=== PATIENT | female | born 1950 | race Caucasian/White ===

== ENCOUNTER 2020-11-30 15:06 | Outpatient (CLI) | payer MEDICARE | END 2020-11-30 23:59 | disposition home or self-care (01) | LOC: CARD DIAG 15:06 | PROVIDERS: ATTEND Internal Medicine | DX: C50.112 Malignant neoplasm of central portion of left female breast (principal); I08.0 Rheumatic disorders of both mitral and aortic valves | CPT/HCPCS: 93306 ==

== ENCOUNTER → 2021-03-11 | Outpatient (CLI) | payer MEDICARE | END | disposition home or self-care (01) | LOC: CARD DIAG 12:47 | PROVIDERS: ATTEND Internal Medicine | DX: Z01.818 Encounter for other preprocedural examination (principal); C50.112 Malignant neoplasm of central portion of left female breast; I08.3 Combined rheumatic disorders of mitral, aortic and tricuspid valves | CPT/HCPCS: 93306 ==

== ENCOUNTER 2021-06-17 14:10 | Outpatient (CLI) | payer MEDICARE | END 2021-06-17 23:59 | disposition home or self-care (01) | LOC: CARD DIAG 14:10 | PROVIDERS: ATTEND Internal Medicine | DX: Z01.818 Encounter for other preprocedural examination (principal); C50.112 Malignant neoplasm of central portion of left female breast; I08.0 Rheumatic disorders of both mitral and aortic valves | CPT/HCPCS: 93306 ==